=== PATIENT | female | born 1995 | race Caucasian/White ===

== ENCOUNTER 2022-10-14 14:43 | Outpatient (REF) | payer OTHER, SELFPAY ==
[2022-10-14 16:08] LABS: MANUAL DIFF FLAG NO
[2022-10-14 16:17] LABS: Basophils Percent Auto 0.2 % (0-2); Hematocrit 38.1 % (37.0-47.0); Hemoglobin 12.6 g/dl (12.0-16.0); Imm Gran Abs Auto 0.01 X10*3/uL (0.00-0.03); Imm Gran Pct Auto 0.2 % (0.0-0.4); Lymphocytes Absolute Auto 1.8 X10*3/uL (1.2-4.9); Mean Corpuscular HGB Conc 33.1 g/dl (31.0-35.0); Mean Corpuscular Hemoglobin 29.3 pg (27.0-33.0); Mean Corpuscular Volume 88.6 fL (80.0-98.0); Mean Platelet Volume 9.5 fL (9.4-12.3); Monocytes Absolute Auto 0.4 X10*3/uL (0.1-1.2); Monocytes Percent Auto 7.5 % (2-11); Neutrophils Absolute Auto 3.2 x10*3/uL (2.0-8.3); Neutrophils Percent Auto 59.1 % (45-73); Platelet Count 295 X10*3/uL (160-400); Red Cell Distribution Width 12.6 % (11.0-16.0); White Blood Count 5.5 X10*3/uL (4.8-10.8)
[2022-10-14 16:44] LABS: Appearance Urine Clear; Color Urine Yellow; Glucose Urine UA Negative (Negative); Leukocyte Esterase Urine Negative (Negative); Nitrite Urine Negative (Negative); PH 5.5 (5.0-9.0); Urine Blood Negative (Negative); Urine Ketones Negative (Negative); Urine Protein Negative (Neg-Trace)
[2022-10-14 16:52] LABS: Rheumatoid Factor 45.6 IU/mL (<15.0)
[2022-10-14 16:53] LABS: Alanine Aminotransferase 20 U/L (0-31); Albumin Level 4.3 g/dL (3.5-5.0); Alkaline Phosphatase 67 U/L (39-117); Anion Gap 17 (12-20); Aspartate Amino Transferase 22 U/L (5-31); Bilirubin Total 0.3 mg/dL (0.0-1.0); Blood Urea Nitrogen 17 mg/dL (9-16); Calcium 10.1 mg/dL (8.4-10.2); Carbon Dioxide 22 mmol/L (22-29); Chloride 103 mmol/L (96-108); Estimated Glomerular Filt Rate > 60; Glucose Random 85 mg/dL (60-115); Potassium 3.8 mmol/L (3.3-5.1); Sodium 138 mmol/L (135-145); Total Protein 7.7 g/dL (6.5-8.0)
[2022-10-14 16:55] LABS: Bacteria Urine None Seen (None Seen); Hyaline Casts Urine 0-2 /LPF (0-2); RBC Urine 0-2 /HPF (0-2); Squamous Epithelial Cell Urine 0-2 /HPF (0-2); WBC Urine 0-5 /HPF (0-5)
[2022-10-14 16:59] LABS: Creatinine Urine 123.29 mg/dL; Total Protein Urine Random < 7 mg/dL (<12)
[2022-10-14 17:48] LABS: Erythrocyte Sedimentation Rate 21 MM/HR (0-20)
[2022-10-15 14:36] LABS: HBS Num1 43.48 mIU/mL (0-7.99); HBc Num1 0.11 S/CO (0.00-0.79); HBsAGNum1 0.41 S/CO (0.00-0.99); Hepatitis A Antibody IgM 0.22 Index (0-0.79); Hepatitis B Core Antibody Nonreactive (Nonreactive); Hepatitis B Surface Antigen Negative (Negative); ~HepC Num1 0.08 S/CO (0.00-0.79); ~Hepatitis A Antibody IgM Nonreactive (Nonreactive); ~Hepatitis B Surface Antibody REACTIVE (Nonreactive); ~Hepatitis C Antibody Nonreactive (Nonreactive)
[2022-10-16 18:03] LABS: Complement C3 113 mg/dL (83-193)
[2022-10-17 12:04] LABS: TS Negative Control Passed; TS Panel A 0; TS Panel B 0; TS Positive Control Passed; TSpotTB Negative (Negative)
[2022-10-18 15:28] LABS: Cyclic Citrullinated Peptide <16 UNITS
[2022-10-18 15:58] LABS: Prot Elec - Albumin 4.4 g/dL (3.8-4.8); Prot Elec - Alpha1 0.3 g/dL (0.2-0.3); Prot Elec - Alpha2 0.7 g/dL (0.5-0.9); Prot Elec - Beta 1 0.5 g/dL (0.4-0.6); Prot Elec - Beta 2 0.4 g/dL (0.2-0.5); Prot Elec - Gamma 1.4 g/dL (0.8-1.7); Prot Elec - Total Protein 7.7 g/dL (6.1-8.1)
[2022-10-18 21:14] LABS: Anti DNA DS Antibody 1 IU/mL; Antibody to SS-A Antigen >8.0 POS AI (<1.0 NEG); Antibody to SS-B Antigen <1.0 NEG AI (<1.0 NEG); SM/Ribonucleoprotein Ab <1.0 NEG AI (<1.0 NEG); Smith Protein <1.0 NEG AI (<1.0 NEG)
[2022-10-19 09:54] LABS: Cardiolipin IgG Ab <2.0 GPL-U/mL; Cardiolipin IgM Ab <2.0 MPL-U/mL
[2022-10-19 18:09] LABS: HLA B27 Positive (Negative)
[2022-10-20 05:45] LABS: PTT (LAC) Screen 35 sec (<=40)
[2022-10-20 08:43] LABS: IgA 218 mg/dL (47-310); IgG 1587 mg/dL (600-1640); IgM 108 mg/dL (50-300)
[2022-10-20 14:54] LABS: Anti Nuclear Antibody Screen POSITIVE (NEGATIVE)
[2022-10-21 14:39] LABS: DNAds, Crithidia Antibody Negative (Negative)
[2022-10-22 06:29] LABS: Beta-2 Glycoprotein IgA <2.0 U/mL (<20.0); Beta-2 Glycoprotein IgG <2.0 U/mL (<20.0); Beta-2 Glycoprotein IgM <2.0 U/mL (<20.0)
== END 2022-10-14 14:44 | disposition home or self-care (01) ==
LOC: HO.LAB 14:43
PROVIDERS: PCP Nurse Practitioner Family; Visit Provider Student in an Organized Health Care Education/Training Program
DX: Z11.7 Encounter for testing for latent tuberculosis infection (principal); Z11.59 Encounter for screening for other viral diseases; Z72.89 Other problems related to lifestyle; M32.9 Systemic lupus erythematosus, unspecified; M35.00 Sjogren syndrome, unspecified; Z79.899 Other long term (current) drug therapy; M54.50 Low back pain, unspecified
CPT/HCPCS: 36415; 80053; 81001; 82570; 82784; 84156; 84165; 85025; 85597; 85598; 85613; 85652; 85670; 85730; 86038; 86039; 86146; 86147; 86160; 86200; 86225; 86235; 86255; 86334; 86431; 86481; 86704; 86706; 86709; 86803; 86812; 87340

== ENCOUNTER 2022-10-14 14:43 | Outpatient (AMB) | payer OTHER, SELFPAY ==
--- NOTE | 2022-10-14 14:52 | A.OFFVIS_ITS ---
Intake Vital Signs 10/14/22 14:53 Height 5 ft 3 in Weight 251 lb 5.231 oz BMI 44.5 BP 130/74 Blood Pressure Location Rt brachial Position Sitting Pulse 87 Pulse Source Pulse Oximeter Temp 98.1 F Temp Source Skin Pulse Oximetry (%) 99 Intake Visit Reasons: Sjogren Syndrome Intake Note: * New pt presents today for SS consult. * Previously seen by Dr Rene, Dr Monreal and Dr Dias * C/o muscle weakness during exercise * States she has flares, which cause pain in calves and ankles and sometimes up thighs and into hips. Metallurgy Teacher Required: No Accompanied by: Self / Same As Patient Allergies No Known Allergies Allergy (Verified 10/14/22 14:55) Medication List - Last Reconciled 10/14/22 by Lashawn Duarte MD alprazolam 0.25 mg PO DAILY PRN diclofenac sodium 75 mg PO BID duloxetine 30 mg PO DAILY hydroxychloroquine 200 mg PO BID lamotrigine 250 mg PO DAILY lamotrigine ER 250 mg PO DAILY tretinoin 0.05% 1 appl topical BEDTIME HPI HPI Comments History of Present Illness Details This is a 27-year-old female with past medical history of Sjogren's presents for evaluation. Her previous hotel reservationist left the practice. Patient states that when she was 12 she started having rashes involving her lower extremities, her knees, calves, ankles and feet, she would also have joint pain and swelling in her knees and ankles. She was evaluated by pediatric hotel reservationist and there was suspicion for Sjogren's, juvenile arthritis, SLE or vasculitis. She had been on multiple treatments. She had been on hydroxychloroquine since 2006. She also took prednisone. She was on azathioprine in her high school years and per patient it was not effective. She was on methotrexate from 2017 through 2020 and medication was not convenient as it was only taken once a week and limited her alcohol intake. Patient denies any dry eyes or dry mouth symptoms. She states that last year she had sinusitis complicated by your infection and partial hearing loss. She also states that she injured her ankle when she was initially diagnosed with her connective tissue disease. At that time however she was practicing [employer]. Over the last year she has been having bilateral ankle pain. She had Achilles tendinitis in the past. She follows up regularly once a year with Ophthalmology for hydroxychloroquine monitoring. She was evaluated this year. She denies any mouth ulcers, blood or froth in urine. She denies any history of DVT/PE. She denies any hair loss. She is unaware of any family history of autoimmune rheumatic disease [facility] Medical History (Updated 10/14/22 @ 15:30 by Lashawn Duarte MD) Generalized anxiety disorder On skilled nursing drug therapy Surgical History H/O wisdom tooth extraction Family History Mother Parkinson disease, Onset Age: 57 Father Asthma Other Family history of diabetes mellitus Family history of heart disease Social History Household Members: Family Alcohol intake: current Alcohol intake frequency: a few times a week Patient Tobacco Use Status: Never used Tobacco Current occupational status: employed Current occupation: [employer] Female Reproductive History Menstrual Total pregnancies: 0 Review of Systems Const Reports weight gain Eyes Reports dry eyes Musc Reports arthralgias and Reports muscle weakness Skin/Breast Reports erythema and Reports rash Psych Reports abnormal sleep pattern, Reports anxiety and Reports depression Physical Exam Vital Signs: Last Vital Signs Temp 98.1 F 10/14/22 14:53 Pulse 87 10/14/22 14:53 BP 130/74 10/14/22 14:53 Pulse Ox 99 10/14/22 14:53 BMI result Body Mass Index 44.5 Const General: cooperative, healthy appearing and comfortable Nutritional Appearance: obese morbidly obese Orientation/consciousness: patient oriented x3 Limitations: no limitations HEENT Head: Yes normocephalic and Yes atraumatic Mouth: moist mucous membranes Resp Effort & Inspection: normal respiratory effort and able to speak in complete se ntences Cardio Rate: regular rate GI Inspection: No distended Palpation (GI): Soft to palpation and nontender Skin Other: Areas of hyperpigmentation on her calves and feet, dorsal surface of toes Neuro General: patient oriented x3 Extrem Other: No active synovitis Normal nailfold capillaroscopy Normal range of motion of both elbows & shoulders without pain Assessment & Plan Assessment & Plan (1) Sjogren's syndrome: Code(s): M35.00 - Sjogren syndrome, unspecified Plan: This is a 27-year-old female with a past medical history of Sjogren's who presents as a new patient. Her previous hotel reservationist left the practice. Patient has autoimmune condition started at age 12 with skin rashes involving her lower extremities, ankles, calves, feet as well as joint pain and swelling in her knees and ankles. Patient stated that her diagnosis was between Sjogren's, SLE, vasculitis and juvenile arthritis. She had been on numerous me dications. She had been on hydroxychloroquine the most, since her diagnosis at age 12, per patient azathioprine was not effective. Methotrexate was hard to be compliant with. Will request records from patient's previous hotel reservationist Dr. Dias and Dr. Monreal. Patient stated that she will send me records from her image scientist, ENT and manager medicare Continue hydroxychloroquine 200 mg daily (2) On intermodal customer service drug therapy: Comment: Hydroxychloroquine Code(s): Z79.899 - Other intermodal customer service (current) drug therapy Plan: Follows up regularly with Ophthalmology yearly. Patient will send me records from Dr. Khoury. Continue hydroxychloroquine 20 mg daily Plan I spent 46 minutes reviewing patient's chart, evaluating patient, ordering diagnostic workup, counseling patient and documenting in the chart Orders: Orders Comprehensive Met. Panel Today M32.9 - Systemic lupus erythematosus, unspecified Complete Blood Count Auto Diff Today M32.9 - Systemic lupus erythematosus, unspecified Complement C3 Today M32.9 - Systemic lupus erythematosus, unspecified Complement C4 Today M32.9 - Systemic lupus erythematosus, unspecified Anti DNA DS Antibody Today M32.9 - Systemic lupus erythematosus, unspecified Anti Extractable Nuclear Ag Today M32.9 - Systemic lupus erythematosus, unspecified Immunofixation Pnl, Serum Today M32.9 - Systemic lupus erythematosus, unspecified Protein Electrophoresis, Serum Today M32.9 - Systemic lupus erythematosus, unspecified Hepatitis A,B,C Profile Today Z11.59 - Encounter for screening for other viral diseases Beta-2 Glycoprotein Antibody Today M32.9 - Systemic lupus erythematosus, unspe cified Cardiolipin Antibodies Today M32.9 - Systemic lupus erythematosus, unspecified Cyclic Citrullinated Peptide Today M32.9 - Systemic lupus erythematosus, unspecified Rheumatoid Factor Today M32.9 - Systemic lupus erythematosus, unspecified Protein Creatinine Ratio, Ur Today M32.9 - Systemic lupus erythematosus, unspecified Lupus Anticoagulant Panel Today M32.9 - Systemic lupus erythematosus, unspecified Erythrocyte Sedimentation Rate Today M3.9 - Systemic lupus erythematosus, unspecified SUMI Reflex Titer and Pattern Today M3.9 - Systemic lupus erythematosus, unspecified DNA Double Stranded-Crithidia Today M3.9 - Systemic lupus erythematosus, unspecified HLA B27 Today M3.9 - Systemic lupus erythematosus, unspecified Sjogren's Antibodies Today M3.9 - Systemic lupus erythematosus, unspecified T Spot TB Today Z11.7 - Encounter for testing for latent tuberculosis infection UA w Microscopic Today M3.9 - Systemic lupus erythematosus, unspecified Medications: New hydroxychloroquine 200 mg PO BID 180 tabs 1RF Coding Level of Care Code New Pt Level 4 (18782) Diagnoses Sjogren's syndrome M35.00 On intermodal customer service drug therapy Z79.899
[2022-10-14 14:53] VITALS: BP 130/74; PULSE 87; TEMP 36.7; O2SAT 99; BMI 44.5
== END 2022-10-14 15:23 | disposition home or self-care (01) ==
PROVIDERS: PCP Nurse Practitioner Family; Visit Provider Student in an Organized Health Care Education/Training Program
DX: M35.00 Sjogren syndrome, unspecified (principal); Z79.899 Other long term (current) drug therapy
CPT/HCPCS: 99204

== ENCOUNTER 2023-01-13 09:46 | Outpatient (AMB) | payer OTHER, SELFPAY ==
--- NOTE | 2023-01-13 09:47 | MHC.OFFVIS ---
Intake Vital Signs 01/13/23 09:48 Height 5 ft 3 in Weight 255 lb 11.779 oz BMI 45.3 BP 128/82 Blood Pressure Location Rt brachial Position Sitting Pulse 96 Pulse Source Pulse Oximeter Temp 96.9 F Temp Source Skin Pulse Oximetry (%) 103 H Oxygen Delivery Method Room Air Intake Visit Reasons: SLE Intake Note: Pt last seen 10/14/22, presents today for follow up and test results. Variety Lathe Operator Required: No Accompanied by: Self / Same As Patient Allergies No Known Allergies Allergy (Verified 01/13/23 09:53) Medication List - Last Reconciled 01/13/23 by Lashawn Duarte MD clindamycin phosphate 1% 1 appl topical BEDTIME PRN clomipramine 150 mg PO .qhs diclofenac sodium 1% (Voltaren Arthritis Pain) 2 grams topical QID PRN fluticasone propionate 50 mcg/actuation (Flonase Allergy Relief) 1 spray intranasal DAILY hydroxychloroquine 200 mg PO BID lamotrigine ER 250 mg PO DAILY melatonin 3 mg PO BEDTIME PRN meloxicam 15 mg PO DAILY multivitamin 1 tab PO DAILY tretinoin 0.05% 1 appl topical BEDTIME PRN valacyclovir 1,000 mg PO DAILY PRN HPI HPI Comments History of Present Illness Details 27-year-old female with Sjogren's presents for follow-up. States that she is doing about the same overall. She has had no new rashes. She states that continues to have bilateral ankle and foot pain, especially worse with prolonged standing and activities. Denies any swollen joints. Compliant with hydroxychloroquine 200 mg Twice daily Initial history: This is a 27-year-old female with past medical history of Sjogren's presents for evaluation. Her previous gin operator left the practice. Patient states that when she was 12 she started having rashes involving her lower extremities, her knees, calves, ankles and feet, she would also have joint pain and swelling in her knees and ankles. She was evaluated by pediatric gin operator and there was suspicion for Sjogren's, juvenile arthritis, SLE or vasculitis. She had been on multiple treatments. She had been on hydroxychloroquine since 2006. She also took prednisone. She was on azathioprine in her high school years and per patient it was not effective. She was on methotrexate from 2016 through 2020 and medication was not convenient as it was only taken once a week and limited her alcohol intake. Patient denies any dry eyes or dry mouth symptoms. She states that last year she had sinusitis complicated by your infection and partial hearing loss. She also states that she injured her ankle when she was initially diagnosed with her connective tissue disease. At that time however she was practicing ballet. Over the last year she has been having bilateral ankle pain. She had Achilles tendinitis in the past. She follows up regularly once a year with Ophthalmology for hydroxychloroquine monitoring. She was evaluated this year. She denies any mouth ulcers, blood or froth in urine. She denies any history of DVT/PE. She denies any hair loss. She is unaware of any family history of autoimmune rheumatic disease [facility] Medical History On remote computer terminal operator drug therapy Generalized anxiety disorder Surgical History H/O wisdom tooth extraction Family History Mother Parkinson disease, Onset Age: 57 Father Asthma Other Family history of diabetes mellitus Family history of heart disease Social History Household Members: Family Alcohol intake: current Alcohol intake frequency: a few times a week Patient Tobacco Use Status: Never used Tobacco Current occupational status: employed Current occupation: [employer] Review of Systems Const Reports weight gain Musc Reports arthralgias and Reports muscle weakness Skin/Breast Reports erythema and Reports rash Psych Reports abnormal sleep pattern, Reports anxiety and Reports depression Physical Exam Vital Signs: Last Vital Signs Temp 96.9 F 01/13/23 09:48 Pulse 96 01/13/23 09:48 BP 128/82 01/13/23 09:48 Pulse Ox 103 H 01/13/23 09:48 Oxygen Delivery Method Room Air 01/13/23 09:48 BMI result Body Mass Index 45.3 Const General: cooperative, healthy appearing and comfortable Nutritional Appearance: obese morbidly obese Orientation/consciousness: patient oriented x3 Limitations: no limitations HEENT Head: Yes normocephalic and Yes atraumatic Mouth: moist mucous membranes Resp Effort & Inspection: normal respiratory effort and able to speak in complete sentences Cardio Rate: regular rate GI Inspection: No distended Palpation (GI): Soft to palpation and nontender Skin Other: Areas of hyperpigmentation on her calves and feet, dorsal surface of toes, Medial aspect of her sibley, medial aspect of her left ankle Neuro General: patient oriented x3 Extrem Other: No active synovitis Normal nailfold capillaroscopy Normal range of motion of both elbows & shoulders without pain Results Reviewed Results Reviewed: 1.Left medial sibley skin biopsy 03/2022? - superficial perivascular dermatitis? ?Note:? The biopsy shows a relatively mild perivascular lymphocytic infiltrate with diff UA is in uphills.? Rare superficial vessels rule red blood cell extravasation but and acute vasculitis is not identified.? The subcutaneous adipose tissue also contains areas of fibrin. The histologic features, while subtle, raise the possibility of a dermal hypersensitivity reaction and then early pigmented purpuric dermatitis.? Clinical correlation is recommended? 2. Skin, left medial sibley (punch for immunofluorescence) Immunofluorescence studies were performed on frozen sections from this skin biopsy using the following antibodies:? IgG, IgA, IgM and C3 A. Faint very focal IgG is identified in the superficial papillary dermal vessels B. No other immunoglobulins or complement identified Note:? The IgG staining is subtle and may be nonspecific, but could also represent evidence of a mild vascular injury.? A repeat IgG stains will be performed and an addendum report will be issued Addendum The IgG was repeated and shows no additional findings Labs 2021 +++SSa ++RF ANCA screen/PR3/MPO all negative Assessment & Plan Assessment & Plan (1) Sjogren's syndrome: Comment: dx age 12 skin rashes involving lower extremities, arthralgias. Vasculitic like rashes. +++SSa ++RF, serology -ve otherwise On HCQ since 2012 Azathioprine stopped due to genital herpes MTX effective for rashes, DC due to limitation of of alcohol intake Code(s): M35.00 - Sjogren syndrome, unspecified Qualifiers: Sjogren organ or system involvement: without extraglandular involvement Qualified Code(s): M35.00 - Sjogren syndrome, unspecified Plan: This is a 27-year-old female with a past medical history of Sjogren's who presents for follow-up. I do not see any signs of an active autoimmune rheumatic disease upon my evaluation. She does not have any active rashes. There is no synovitis on exam. Continue hydroxychloroquine 200 mg daily Labs before next visit in 4 months (2) On remote computer terminal operator drug therapy: Comment: Hydroxychloroquine Code(s): Z79.899 - Other snf (current) drug therapy Plan: Follows up regularly with Ophthalmology yearly. Will request records from Dr. Khoury Plan I spent 26 minutes reviewing patient's chart, evaluating patient, ordering diagnostic workup, counseling patient and documenting in the chart Orders: Orders Complement C4 4 Months M32.9 - Systemic lupus erythematosus, unspecified Protein Creatinine Ratio, Ur 4 Months M32.9 - Systemic lupus erythematosus, unspecified Complete Blood Count Auto Diff 4 Months M35.00 - Sjogren syndrome, unspecified C Reactive Protein 4 Months M35.00 - Sjogren syndrome, unspecified Anti DNA DS Antibody 4 Months M32.9 - Systemic lupus erythematosus, unspecified Complement C3 4 Months M32.9 - Systemic lupus erythematosus, unspecified UA w Microscopic 4 Months M32.9 - Systemic lupus erythematosus, unspecified Comprehensive Met. Panel 4 Months M35.00 - Sjogren syndrome, unspecified Erythrocyte Sedimentation Rate 4 Months M35.00 - Sjogren syndrome, unspecified Coding Level of Care Code Est Pt Level 4 (69702) Diagnoses Sjogren's syndrome without extraglandular involvement M35.00 Sjogren organ or system involvement: without extraglandular involvement On remote computer terminal operator drug therapy Z79.899
[2023-01-13 09:48] VITALS: BP 128/82; PULSE 96; TEMP 36.1; O2SAT 103; BMI 45.3
== END 2023-01-13 10:44 | disposition home or self-care (01) ==
PROVIDERS: PCP Nurse Practitioner Family; Visit Provider Student in an Organized Health Care Education/Training Program
DX: M35.00 Sjogren syndrome, unspecified (principal); Z79.899 Other long term (current) drug therapy
CPT/HCPCS: 99214

== ENCOUNTER → 2023-01-13 09:46 | Outpatient (BNVA) | payer OTHER, SELFPAY | PROVIDERS: PCP Nurse Practitioner Family; Visit Provider Student in an Organized Health Care Education/Training Program ==

== ENCOUNTER 2023-07-24 15:58 | Outpatient (AMB) | payer OTHER, SELFPAY ==
[2023-07-24 15:59] VITALS: BP 118/84; PULSE 108; O2SAT 96; BMI 43.3
--- NOTE | 2023-07-24 15:59 | MHC.OFFVIS ---
Vital Signs 07/24/23 15:59 Height 5 ft 3 in Weight 244 lb 11.41 oz BMI 43.3 BP 118/84 Blood Pressure Location Rt brachial Position Sitting Pulse 108 H Pulse Source Pulse Oximeter Pulse Oximetry (%) 96 Oxygen Delivery Method Room Air Intake Visit Reasons: Sjogren's/CM Intake Note: Pt last seen 01/13/23 presents today for follow up and test results. Reports psych provider rx'ed auvelity but she has not started it yet. Exercise Scientist Required: No Accompanied by: Self / Same As Patient Allergies No Known Allergies Allergy (Verified 07/24/23 16:08) Medication List - Last Reconciled 07/24/23 by Lashawn Duarte MD azelastine intranasal fluticasone propionate 50 mcg/actuation (Flonase Allergy Relief) 1 spray intranasal DAILY hydroxychloroquine 200 mg PO DAILY melatonin 3 mg PO BEDTIME PRN multivitamin 1 tab PO DAILY valacyclovir 1,000 mg PO DAILY PRN HPI Comments Details: 28-year-old female with Sjogren's presents for follow-up. She states that she has been going through difficulties with her mental health. In the middle of May she had an episode of vomiting the another episode 2 days later. At that time she stopped her meds for some time. She did not restart her her duloxetine. She has restarted hydroxychloroquine but has been taking it once daily instead of twice daily. She states that she has been having frequent episodes of her ears getting plugged up. She was evaluated by ENT and told there were no signs of infection. She denies any skin rashes or swollen joints. Initial history: This is a 27-year-old female with past medical history of Sjogren's presents for evaluation. Her previous package drier left the practice. Patient states that when she was 12 she started having rashes involving her lower extremities, her knees, calves, ankles and feet, she would also have joint pain and swelling in her knees and ankles. She was evaluated by pediatric package drier and there was suspicion for Sjogren's, juvenile arthritis, SLE or vasculitis. She had been on multiple treatments. She had been on hydroxychloroquine since 2006. She also took prednisone. She was on azathioprine in her high school years and per patient it was not effective. She was on methotrexate from 2016 through 2021 and medication was not convenient as it was only taken once a week and limited her alcohol intake. Patient denies any dry eyes or dry mouth symptoms. She states that last year she had sinusitis complicated by your infection and partial hearing loss. She also states that she injured her ankle when she was initially diagnosed with her connective tissue disease. At that time however she was practicing ballet. Over the last year she has been having bilateral ankle pain. She had Achilles tendinitis in the past. She follows up regularly once a year with Ophthalmology for hydroxychloroquine monitoring. She was evaluated this year. She denies any mouth ulcers, blood or froth in urine. She denies any history of DVT/PE. She denies any hair loss. She is unaware of any family history of autoimmune rheumatic disease [facility] Medical History On prison drug therapy Generalized anxiety disorder Surgical History H/O wisdom tooth extraction Family History Mother Parkinson disease, Onset Age: 57 Father Asthma Other Family history of diabetes mellitus Family history of heart disease Social History Household Members: Family Alcohol intake: current Alcohol intake frequency: a few times a week Patient Tobacco Use Status: Never used Tobacco Current occupational status: employed Current occupation: [employer] Review of Systems [employer] Denies arthralgias and Denies joint swelling Skin/Breast Details: No new rashes Physical Exam Const General: cooperative, healthy appearing and comfortable Nutritional Appearance: obese morbidly obese Orientation/consciousness: patient oriented x3 Limitations: no limitations HEENT Head: Yes normocephalic and Yes atraumatic Mouth: moist mucous membranes Resp Effort & Inspection: normal respiratory effort and able to speak in complete sentences Cardio Rate: regular rate GI Inspection: No distended Palpation (GI): Soft to palpation and nontender Skin Other: Areas of hyperpigmentation on her calves and feet, dorsal surface of toes, Medial aspect of her sibley, medial aspect of her left ankle Neuro General: patient oriented x3 Extrem Other: No active synovitis Normal nailfold capillaroscopy Normal range of motion of both elbows & shoulders without pain Results Reviewed Results Reviewed: 1.Left medial sibley skin biopsy 03/2022? - superficial perivascular dermatitis? ?Note:? The biopsy shows a relatively mild perivascular lymphocytic infiltrate with diff UA is in uphills.? Rare superficial vessels rule red blood cell extravasation but and acute vasculitis is not identified.? The subcutaneous adipose tissue also contains areas of fibrin. The histologic features, while subtle, raise the possibility of a dermal hypersensitivity reaction and then early pigmented purpuric dermatitis.? Clinical correlation is recommended? 2. Skin, left medial sibley (punch for immunofluorescence) Immunofluorescence studies were performed on frozen sections from this skin biopsy using the following antibodies:? IgG, IgA, IgM and C3 A. Faint very focal IgG is identified in the superficial papillary dermal vessels B. No other immunoglobulins or complement identified Note:? The IgG staining is subtle and may be nonspecific, but could also represent evidence of a mild vascular injury.? A repeat IgG stains will be performed and an addendum report will be issued Addendum The IgG was repeated and shows no additional findings Labs 2021 +++SSa ++RF ANCA screen/PR3/MPO all negative Assessment & Plan Assessment & Plan (1) Sjogren's syndrome: Comment: dx age 12 skin rashes involving lower extremities, arthralgias. Vasculitic like rashes. +++SSa ++RF, serology -ve otherwise On HCQ since 2012, reduced to 200 mg daily 07/2023 Azathioprine stopped due to genital herpes MTX effective for rashes, DC due to limitation of of alcohol intake Code(s): M35.00 - Sjogren syndrome, unspecified Category: Medical Qualifiers: Sjogren organ or system involvement: without extraglandular involvement Qualified Code(s): M35.00 - Sjogren syndrome, unspecified Plan: This is a 28-year-old female with a past medical history of Sjogren's who presents for follow-up. I do not see any signs of an active autoimmune rheumatic disease upon my evaluation. She does not have any active rashes. There is no synovitis on exam. Labs show mildly elevated ESR and CRP but no signs of active disease on exam. There is no proteinuria or cytopenias Lower hydroxychloroquine to 200 mg daily Labs before next visit in 6 months (2) On local company intermodal truck driver drug therapy: Comment: Eye exam okay 01/2023 Code(s): Z79.899 - Other prison (current) drug therapy Category: Medical Plan: follow-up regularly with echocardiography radiology technologist Plan I spent 26 minutes reviewing patient's chart, evaluating patient, ordering diagnostic workup, counseling patient and documenting in the chart Orders: Orders Complement C3 6 Months M32.9 - Systemic lupus erythematosus, unspecified Complement C4 6 Months M32.9 - Systemic lupus erythematosus, unspecified C Reactive Protein 6 Months M32.9 - Systemic lupus erythematosus, unspecified Anti DNA DS Antibody 6 Months M32.9 - Systemic lupus erythematosus, unspecified Erythrocyte Sedimentation Rate 6 Months M32.9 - Systemic lupus erythematosus, unspecified Protein Creatinine Ratio, Ur 6 Months M32.9 - Systemic lupus erythematosus, unspecified UA w Microscopic 6 Months M32.9 - Systemic lupus erythematosus, unspecified Complete Blood Count Auto Diff 6 Months M32.9 - Systemic lupus erythematosus, unspecified Comprehensive Met. Panel 6 Months M32.9 - Systemic lupus erythematosus, unspecified Medications: New hydroxychloroquine 200 mg PO DAILY 90 tabs 1RF Coding Level of Care Code Est Pt Level 4 (04034) Diagnoses Sjogren's syndrome without extraglandular involvement M35.00 Sjogren organ or system involvement: without extraglandular involvement On local company intermodal truck driver drug therapy Z79.899
== END 2023-07-24 16:18 | disposition home or self-care (01) ==
PROVIDERS: PCP Nurse Practitioner Family; Visit Provider Student in an Organized Health Care Education/Training Program
DX: M35.00 Sjogren syndrome, unspecified (principal); Z79.899 Other long term (current) drug therapy
CPT/HCPCS: 99214

== ENCOUNTER → 2023-07-24 15:58 | Outpatient (BNVA) | payer OTHER, SELFPAY | PROVIDERS: PCP Nurse Practitioner Family; Visit Provider Student in an Organized Health Care Education/Training Program ==

== ENCOUNTER 2024-02-08 13:52 | Outpatient (AMB) | payer OTHER, SELFPAY ==
--- NOTE | 2024-02-08 13:54 | A.OFFVIS_ITS ---
Vital Signs 02/08/24 14:01 Height 5 ft 3 in Weight 246 lb 14.684 oz BMI 43.7 BP 120/84 Blood Pressure Location Rt brachial Position Sitting Pulse 96 Pulse Source Pulse Oximeter Pulse Oximetry (%) 98 Oxygen Delivery Method Room Air Intake Visit Reasons: Sjogren's Intake Note: Patient presents for Sjogren's. Allergies No Known Allergies Allergy (Verified 02/08/24 13:57) Medication List - Last Reconciled 02/08/24 by Lashawn Duarte MD azelastine intranasal cetirizine (Zyrtec) 10 mg PO DAILY PRN dextromethorphan-bupropion 45-105 mg ER (Auvelity) 1 tab PO BID fluticasone propionate 50 mcg/actuation (Flonase Allergy Relief) 1 spray intranasal DAILY hydroxychloroquine 200 mg PO DAILY melatonin 3 mg PO BEDTIME PRN valacyclovir 1,000 mg PO DAILY PRN HPI Comments Details: This is a 28-year-old female with Sjogren's who presents for follow-up. States that she is doing reasonably well overall. She was evaluated by ENT for repeated sinusitis and mild dear infections. She states that she was found to be allergic to multiple allergens but no specific treatment was prescribed. She has been doing reasonably well overall. Remains on hydroxychloroquine 200 mg daily. She has not noticed a difference since we lowered her hydroxychloroquine dose last visit. Initial history: This is a 27-year-old female with past medical history of Sjogren's presents for evaluation. Her previous chip bin operator left the practice. Patient states that when she was 12 she started having rashes involving her lower extremities, her knees, calves, ankles and feet, she would also have joint pain and swelling in her knees and ankles. She was evaluated by pediatric chip bin operator and there was suspicion for Sjogren's, juvenile arthritis, SLE or vasculitis. She had been on multiple treatments. She had been on hydroxychloroquine since 2006. She also took prednisone. She was on azathioprine in her high school years and per patient it was not effective. She was on methotrexate from 2016 through 2020 and medication was not convenient as it was only taken once a week and limited her alcohol intake. Patient denies any dry eyes or dry mouth symptoms. She states that last year she had sinusitis complicated by your infection and partial hearing loss. She also states that she injured her ankle when she was initially diagnosed with her connective tissue disease. At that time however she was practicing ballet. Over the last year she has been having bilateral ankle pain. She had Achilles tendinitis in the past. She follows up regularly once a year with Ophthalmology for hydroxychloroquine monitoring. She was evaluated this year. She denies any mouth ulcers, blood or froth in urine. She denies any history of DVT/PE. She denies any hair loss. 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 [employer] Denies arthralgias and Denies joint swelling Skin/Breast Details: No new rashes Physical Exam Vital Signs: Last Vital Signs Pulse 96 02/08/24 14:01 BP 120/84 02/08/24 14:01 Pulse Ox 98 02/08/24 14:01 Oxygen Delivery Method Room Air 02/08/24 14:01 BMI result Body Mass Index 43.7 Const General: cooperative, healthy appearing and comfortable Nutritional Appearance: obese morbidly obese Orientation/consciousness: patient oriented x3 Limitations: no limitations HEENT Head: Yes normocephalic and Yes atraumatic Mouth: moist mucous membranes Resp Effort & Inspection: normal respiratory effort and able to speak in complete sentences Cardio Rate: regular rate GI Inspection: No distended Palpation (GI): Soft to palpation and nontender Skin Other: Areas of hyperpigmentation on her calves and feet, dorsal surface of toes, Medial aspect of her sibley, medial aspect of her left ankle Neuro General: patient oriented x3 Extrem Other: No active synovitis Normal nailfold capillaroscopy Normal range of motion of both elbows & shoulders without pain Assessment & Plan Assessment & Plan (1) Sjogren's syndrome: Comment: dx age 12 skin rashes involving lower extremities, arthralgias. Vasculitic like rashes. +++SSa ++RF, serology -ve otherwise On HCQ since 2012, reduced to 200 mg daily 07/2023 Azathioprine stopped due to genital herpes MTX effective for rashes, DC due to limitation of of alcohol intake Code(s): M35.00 - Sjogren syndrome, unspecified Category: Medical Qualifiers: Sjogren organ or system involvement: without extraglandular involvement Qualified Code(s): M35.00 - Sjogren syndrome, unspecified Plan: This is a 28-year-old female with a past medical history of Sjogren's who presents for follow-up. I do not see any signs of an active autoimmune rheumatic disease upon my evaluation. She does not have any active rashes. There is no synovitis on exam. Labs unremarkable No change since hydroxychloroquine was lowered to 200 mg daily last visit Continue hydroxychloroquine to 200 mg daily Labs before next visit in 6 months (2) On [employer] continuous churn drug therapy: Comment: Eye exam okay 08/2022 Code(s): Z79.899 - Other [employer] continuous churn (current) drug therapy Category: Medical Plan: Patient is overdue for her eye exam. Advised patient to make an appointment with her fuel system maintenance worker Plan I spent 26 minutes reviewing patient's chart, evaluating patient, ordering diagnostic workup, counseling patient and documenting in the chart Orders: Orders C Reactive Protein 6 Months M32.9 - Systemic lupus erythematosus, unspecified Protein Creatinine Ratio, Ur 6 Months M32.9 - Systemic lupus erythematosus, unspecified Comprehensive Met. Panel 6 Months M32.9 - Systemic lupus erythematosus, unspecified Anti DNA DS Antibody 6 Months M32.9 - Systemic lupus erythematosus, unspecified Complement C3 6 Months M32.9 - Systemic lupus erythematosus, unspecified Complement C4 6 Months M32.9 - Systemic lupus erythematosus, unspecified Erythrocyte Sedimentation Rate 6 Months M32.9 - Systemic lupus erythematosus, unspecified UA w Microscopic 6 Months M32.9 - Systemic lupus erythematosus, unspecified Complete Blood Count Auto Diff 6 Months M32.9 - Systemic lupus erythematosus, unspecified Coding Level of Care Code Est Pt Level 4 (00375) Diagnoses Sjogren's syndrome without extraglandular involvement M35.00 Sjogren organ or system involvement: without extraglandular involvement On [facility] drug therapy Z79.899
[2024-02-08 14:01] VITALS: BP 120/84; PULSE 96; O2SAT 98; BMI 43.7
== END 2024-02-08 14:20 | disposition home or self-care (01) ==
PROVIDERS: PCP Nurse Practitioner Family; Visit Provider Student in an Organized Health Care Education/Training Program
DX: M35.00 Sjogren syndrome, unspecified (principal); Z79.899 Other long term (current) drug therapy
CPT/HCPCS: 99214

== ENCOUNTER 2024-09-25 09:08 | Outpatient (AMB) | payer BC, SELFPAY ==
--- NOTE | 2024-09-25 09:10 | MHC.OFFVIS ---
Vital Signs 09/25/24 09:11 Height 5 ft 3 in Weight 261 lb 11.019 oz BMI 46.4 BP 120/90 H Blood Pressure Location Lt brachial Position Sitting Pulse 74 Pulse Source Pulse Oximeter Pulse Oximetry (%) 98 Oxygen Delivery Method Room Air Intake Visit Reasons: Sjogren's Intake Note: Patient presents for Sjogren's. Accompanied by: Self / Same As Patient Allergies No Known Allergies Allergy (Verified 09/25/24 09:11) HPI HPI Sjogren's: Details: Occationally she has petechia spots on pressure points where her socks would be or after wearing a particular shoes. Self resolves in a few days. Sometimes the spots congregate to form a blotchy area. Oral ulcers a few times a year. +hair loss more than a few strands more recently. No bald spots. Denies fevers, dyspnes, pleurisy, urinary symptoms. Sometimes has headaches. Denies dry mouth. Uses artificial tears BID. Feels itchy eyes once a few times a month. Uses artificial tear during the day sometimes when she feels tired, eyes are sensitive or itchy. +photosensitivity. She had an injury to her left ankle that limits activity sometimes. She completed physical therapy but has challenges with being motivated to do exercise at time. When she does spin classes or yoga she has pain in her wrists. [facility] Medical History On care home drug therapy Generalized anxiety disorder Surgical History H/O wisdom tooth extraction Family History Mother Parkinson disease, Onset Age: 57 Father Asthma Other Family history of diabetes mellitus Family history of heart disease Social History Household Members: Family Alcohol intake: current Alcohol intake frequency: a few times a week Patient Tobacco Use Status: Never used Tobacco Current occupational status: employed Current occupation: Early [employer] Physical Exam Vital Signs: Last Vital Signs Pulse 74 09/25/24 09:11 BP 120/90 H 09/25/24 09:11 Pulse Ox 98 09/25/24 09:11 Oxygen Delivery Method Room Air 09/25/24 09:11 BMI result Body Mass Index 46.4 Const Other: General: Comfortable CVS: RRR Respiratory: clear to auscultation bilaterally. Good respiratory effort Skin: She has circular lesion on lower extremities from excoriation. No petechiae present. MSK: No tender joints. Normal range of motion of upper extremities and lower extremities. Assessment & Plan Assessment & Plan (1) Sjogren's syndrome: Comment: In clinical remission on hydroxychloroquine for Sjogren syndrome related vasculitic rashes. She denies dry mouth. Artificial tears b.i.d. or t.i.d. controls dry eyes. She continues to have fatigue and reports sleep apnea. Labs from September 2024 revealed mild elevation in ESR and positive rheumatoid factor. Rheumatology history: dx age 12 skin rashes involving lower extremities and arthralgias. Vasculitic like rashes. SUMI 1:1280, +SSa, RF 46, HLA B27 positive. On HCQ since 2012, reduced to 200 mg daily 07/2023. Azathioprine stopped due to genital herpes. MTX effective for rashes, DC due to limitation of of alcohol intake. Code(s): M35.00 - Sjogren syndrome, unspecified Category: Medical Qualifiers: Sjogren organ or system involvement: without extraglandular involvement Qualified Code(s): M35.00 - Sjogren syndrome, unspecified Plan: Continue hydroxychloroquine 200 mg daily. Eye exam 03/22/2024 visual field and OCT okay. Follow-up yearly Labs for disease and drug monitoring on high-risk medication up-to-date 09/2024 Dry eye management: Continue artificial tears b.i.d. or t.i.d. PRN Encouraged regular exercise program. She is working to obtain home physical therapy for ankle strengthening. I recommended contacting insurance to see if they have a physical therapy fide such as hinge available to her. Return to clinic in 3 months (2) On care home drug therapy: Comment: Code(s): Z79.899 - Other care home (current) drug therapy Category: Medical Plan: See above Medications: Refilled hydroxychloroquine 200 mg PO DAILY 90 tabs 1RF Coding Level of Care Code Est Pt Level 5 (83658) Diagnoses Sjogren's syndrome without extraglandular involvement M35.00 Sjogren organ or system involvement: without extraglandular involvement On care home drug therapy Z79.899 Time Spent (min) 40
[2024-09-25 09:11] VITALS: BP 120/90; PULSE 74; O2SAT 98; BMI 46.4
--- OUTSIDE RECORDS SUMMARY | 2024-09-25 09:31 | XMS_ITS | Clinical Summary ---
Author Organization [employer] Address [address] [place] [address] Care Team Providers Care Auto Tire Recapper Name Role Phone Unavailable Primary Care Provider Unavailabl e Social History Tobacco Use Types Packs/Day Years Used Date Smoking Tobacco: Never Assessed Comments Unknown Sex and Gender Information Value Date Recorded Sex Assigned at Female 05/06/2022 9:45 AM EDT Legal Sex Female 8:39 PM EST Gender Identity Female 12/24/2021 8:39 PM EST Sexual Orientation Straight 12/24/2021 8: 39 PM EST Plan of Treatment Health Maintenance Due Date Last Done Comments Depression Screening 1994 Disability Screening 1994 Alcohol/Substance Use Screening 2006 Tobacco Screening 2006 Family Planning (PISQ) 2009 HPV Vaccines (1 - 3-dose series) 2009 DTaP/Tdap/Td Vaccines (1 - Tdap) 2013 Hepatitis B Vaccines (1 of 3 - 19+ 3-dose series) 2013 Pap Smear 06/16/2015 COVID-19 Vaccine (1 - 2023-2 5 season) 2023 Cervical Cancer Screening 2024 HPV/Cotest 2024 Influenza Vaccine (#1) 2024 Zoster Vaccines (1 of 2) 2044 RSV Patients and Pa tients Aged 60 years or older (1 - 1-dose 75+ series) 2069 HIB Vaccines Aged Out No longer eligi ble based on patient's age to complete this topic Hepatitis A Vaccines Aged Out No long er eligible based on patient's age to complete this topic IPV Vaccines Aged Out No longer eligi ble based on patient's age to complete this topic Meningococcal B Vaccine Aged Out No l onger eligible based on patient's age to complete this topic Meningococcal Vaccine Aged Out No wili kerri eligible based on patient's age to complete this topic Pneumococcal Vaccine: Pediat rics (0 to 5 Years) and At-Risk Patients (6 to 49) Years Aged Out No longer eligible b ased on patient's age to complete this topic RSV under 20 months Aged Out No longe r eligible based on patient's age to complete this topic Rotavirus Vaccines Aged Out No longer eligible based on patient's age to complete this topic
--- OUTSIDE RECORDS SUMMARY | 2024-09-25 09:31 | XMS_ITS | Encounter Summary ---
Author Organization [facility] Address [address] [place] [id number] Phone Care Team Providers Care Tree Scout Name Role Phone Rohit Trent MD Primary Care Provider Tonio angel Encounter Details Date Type Department Care Team (Late st Contact Info) Description 02/01/2013 Nurse Only [address] [address] Social History Tobacco Use Types Packs/Day Years Used Date Smoking Tobacco: Never Comments:Never Smoker Comments Unknown Sex and Gender Information Value Date Recorded Sex Assigned at Not on file Legal Sex Female 4:06 PM EST Gender Identity Not on file Sexual Orientation Not on file documented as of this encounter Nursing Notes * UNKNOWN, HISTORICAL - 02/01/2013 3:44 PM EST Tisha Tineo. 1995 NURSE NOTE/VERBAL ORDERS Office/Outpatient Visit Visit Date: Feb 01, 2013 03:44 pm Provider: Rosa Petersen RN (Station Air Traffic Control Specialist: Lorenzo Matias MD; Storage Specialist: Rosa Petersen RN) Location: [facility]. 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 ASSESSMENT: V0 PPD Reading ORDERS: Other Orders: PPD Reading Only (In-House) PLAN: PPD Reading PPD Reading: read as negative, no redness or swelling noted. Given note regarding negative result. Orders: PPD Reading Only (In-House) CHARGE CAPTURE: Primary Diagnosis: PPD Reading Orders: PPDR PPD Reading Only (In-House) documented in this encounter Plan of Treatment Not on file documented as of this encounter Visit Diagnoses Not on filedocumented in this encounter Care Teams Tree Scout Relationship Specialty Start Date End Date Rohit Trent MD PCP - General 04/04/16 06/22/21 documented as of this encounter
--- OUTSIDE RECORDS SUMMARY | 2024-09-25 09:31 | XMS_ITS | Encounter Summary ---
Author Organization [facility] Address [address] [place] [phone] Phone Care Team Providers Care Game Tester Name Role Phone Vesna Bliss MD Primary Care Provider [phone] Encounter Details Date Type Department Care Team (Latest Contact Info) Description 12/26/2016 Transcribe Orders [facility] [address] [place] [address] Vesna Bliss MD [address] [place] [phone] [email or web address] Abnormal weight gain (Primary Dx) Social History Tobacco Use Types Packs/Day Years Used Date Smoking Tobacco: Never Assessed Comments Unknown Sex and Gender Information Value Date Recorded Sex Assigned at Not on file Legal Sex Female 8:53 PM EDT Gender Identity Not on file Sexual Orientation Not on file documented as of this encounter Plan of Treatment Not on file documented as of this encounter Procedures Procedure Name Priority Date/Time Associated Diagnosis Comments CORTISOL, FREE, 24 HR URINE Routine 12/27/2016 2:17 PM EST Abnormal weight gain TSH Routine 12/26/2016 1:52 PM EST Abnormal weight gain documented in this encounter Results * Cortisol, free, 24 hr urine (12/27/2016 2:17 PM EST) URINE FREE CORTISOL 11 3.5 - 45 mcg/24 [facility] TOTAL VOLUME 600 mL [facility] LAB MED[facility] Comment: (NOTE) ADDITIONAL INFORMATION This test was developed and its performance characteristics determined by [facility] in a manner consistent with CLIA requirements. This test has not been cleared or approved by the [place]. Food and Drug Administration. COLLECTION DURATION 24 h [facility] Urine (Urine) 12/27/2016 2:1 7 PM EST 12/27/2016 2:25 PM EST us Vesna Bliss MD URINE ORDERABLES Final Result [facility] [address] [place] [address] * TSH (12/26/2016 1:52 PM EST) TSH 3.52 0.27 - 4.20 uIU/mL [facility] Blood 12/26/2016 1:52 PM EST 12/26/2016 2:45 PM EST us Vesna Bliss MD LAB BLOOD ORDERABLES Final Re sult Performing Organization Address [facility] Co de Phone Number [address] [address] documented in this encounter Visit Diagnoses Diagnosis Abnormal weight gain- Primary documented in this encounter Additional Health Concerns Infection Onset Date Last Indicated Resolved Time COVID-19 04/22/2022 04/22/2022 05/13/2022 1:21 AM EDT Influenza B 04/22/2022 04/22/2022 04/29/2022 1:22 AM EDT documented as of this encounter Care Teams Game Tester Relationship Specialty Start Date End Date Vesna Bliss MD [email or web address] - General Family Medicine 12/26/16 documented as of this encounter Additional Source Comments The information contained in this document represents components of the legal health record. It is not the complete legal health record.[facility]
== END 2024-09-25 10:00 | disposition home or self-care (01) ==
PROVIDERS: PCP Nurse Practitioner Family; Visit Provider Internal Medicine Rheumatology
DX: M35.00 Sjogren syndrome, unspecified (principal); Z79.899 Other long term (current) drug therapy
CPT/HCPCS: 99215